=== PATIENT | female | born 1955 | race Caucasian/White ===

== ENCOUNTER 2021-06-19 21:02 | Emergency (ER) | payer OTHER, MEDICAID ==
[~2021-06-19] VITALS: Ht 152.4 cm; Wt 81.6 kg
[2021-06-19 21:55] VITALS: BP_SYST 138
[2021-06-19] MEDS ORDERED: METO50TA7 PO (22:01)
[2021-06-19] MEDS ORDERED: LIP80 PO (22:02)
[2021-06-19] MEDS ORDERED: ASPI-1457 PO (22:03)
[2021-06-19] MEDS ORDERED: AMLO5TAB4 PO (22:04)
[2021-06-19] MEDS ORDERED: VITAMIN 2 (22:12)
[2021-06-19] MEDS ORDERED: VITAMIN D2 PO (22:13)
[2021-06-20 00:52] LABS: BASOPHILS # (AUTO) 0.1 K/uL (0.0-0.2); BASOPHILS % (AUTO) 0.8 % (0.0-2.0); EOSINOPHILS # (AUTO) 0.2 K/uL (0.0-0.4); EOSINOPHILS % (AUTO) 2.2 % (0.0-4.0); HEMATOCRIT 36.9 % (36-48); HEMOGLOBIN 12.6 g/dL (12.0-16.0); LYMPHOCYTES # (AUTO) 3.8 K/uL (1.0-5.5); LYMPHOCYTES % (AUTO) 45.7 % (20.5-51.5); MEAN CORPUSCULAR HEMOGLOBIN 31 pg (27-31); MEAN CORPUSCULAR HGB CONC 34 % (32-36); MEAN CORPUSCULAR VOLUME 91 fL (79.0-98.0); MONOCYTES # (AUTO) 0.6 K/uL (0.0-1.0); MONOCYTES % (AUTO) 7.7 % (1.7-9.3); NEUTROPHILS # (AUTO) 3.7 K/uL (1.8-7.7); NEUTROPHILS % (AUTO) 43.6 % (40.0-70.0); PLATELET COUNT (AUTO) 273 K/uL (130-430); RED BLOOD CELL COUNT(AUTO) 4.07 MIL/uL (4.2-6.2); RED CELL DISTRIBUTION WIDTH 13.4 % (9.0-15.0); WHITE BLOOD COUNT (AUTO) 8.4 K/uL (4.8-10.8)
[2021-06-20 00:53] LABS: BILIRUBIN,URINE NEGATIVE (NEGATIVE); BLOOD, URINE NEGATIVE (NEGATIVE); CLARITY/URINE CLEAR (CLEAR); COLOR,URINE YELLOW (YELLOW); GLUCOSE,URINE NEGATIVE (NEGATIVE); KETONES,URINE NEGATIVE (NEGATIVE); LEUKOCYTE ESTERASE ,URINE 1+ (NEGATIVE); NITRITE, URINE POSITIVE (NEGATIVE); PROTEIN URINE NEGATIVE (NEGATIVE); UROBILINOGEN,URINE 0.2 (0.2-1.0)
[2021-06-20 01:05] LABS: CALCIUM 8.9 mg/dL (8.4-11.0); CREATININE 0.76 mg/dL (0.55-1.30); POTASSIUM 3.9 mmol/L (3.5-5.1)
[2021-06-20 01:10] LABS: INR 0.9 (0.8-1.2); PROTHROMBIN TIME 9.7 SECS (9.5-12.5)
[2021-06-20 01:11] LABS: ALBUMIN 3.7 g/dL (3.4-4.8); TOTAL BILIRUBIN 0.7 mg/dL (0.0-1.0)
[2021-06-20] MEDS ORDERED: cephALEXin 500 MG CAPSULE PO ONE (01:45)
[2021-06-20 01:58] LABS: BACTERIA,URINE MODERATE /HPF (None Seen); RBC,URINE 0-3 /HPF (0-3)
[2021-06-20] MEDS ORDERED: CEPH250C PO (01:59)
[2021-06-20 02:10] VITALS: BP_SYST 141
== END 2021-06-20 02:10 | disposition home or self-care (01) ==
LOC: SED 21:02
DX: N39.0 Urinary tract infection, site not specified (principal); E11.65 Type 2 diabetes mellitus with hyperglycemia; I10 Essential (primary) hypertension; K21.9 Gastro-esophageal reflux disease without esophagitis; Z79.899 Other long term (current) drug therapy
CPT/HCPCS: 36415; 71045; 80053; 81000; 82962; 84484; 85025; 85610-TC; 85730-TC; 87086; 93005; 99285

== ENCOUNTER 2021-08-21 21:08 | Emergency (ER) | payer OTHER, MEDICAID, SELFPAY ==
[~2021-08-21] VITALS: Ht 152.4 cm; Wt 84.4 kg
[~2021-08-21 21:08] MED LIST: AMLO5TAB4 PO; ASPI-1457 PO; CEPH250C PO; LIP80 PO; METO50TA7 PO; VITAMIN 2; VITAMIN D2 PO
[2021-08-21 21:25] VITALS: BP_SYST 196
[2021-08-21 22:00] VITALS: BP_SYST 196
--- NOTE | 2021-08-21 22:00 | NUR ---
Pt brought by family, A&Ox4, pt presents to ER with L ankle pain/swelling after twisting foot, skin pink and warm, cap refill <3, VSS.
--- NOTE | 2021-08-21 22:00 | NUR ---
Patient left without being seen.
== END 2021-08-21 22:00 | disposition left against medical advice (07) ==
LOC: SED 21:20
DX: S93.402A Sprain of unspecified ligament of left ankle, initial encounter (principal); I10 Essential (primary) hypertension; E11.9 Type 2 diabetes mellitus without complications; K21.9 Gastro-esophageal reflux disease without esophagitis; E78.00 Pure hypercholesterolemia, unspecified; X58.XXXA Exposure to other specified factors, initial encounter; Y93.9 Activity, unspecified; Y92.9 Unspecified place or not applicable; Y99.9 Unspecified external cause status
CPT/HCPCS: 99283

== ENCOUNTER 2021-12-12 00:28 | Emergency (ER) | payer OTHER, MEDICAID ==
[~2021-12-12] VITALS: Ht 154.9 cm; Wt 83.5 kg
[2021-12-12 00:48] VITALS: BP_SYST 184
[2021-12-12] MEDS ORDERED: ONDANSETRON HCL 4 MG/2 ML VIAL IVP ONE ×2 (01:15→04:00)
[2021-12-12] MEDS ORDERED: NACL 0.9% 1,000 ML IV ONE (01:15)
[2021-12-12] MEDS ORDERED: KETOROLAC TROMETHAMINE 30 MG VIAL IVP ONE (01:15)
--- NOTE | 2021-12-12 02:06 | NUR ---
Patient to ER bed 8 to gown for evaluation. Side rails up. Report given to CARLENE ROMERO
--- NOTE | 2021-12-12 02:20 | NUR ---
Pt brought self in from home due to c/o R lower back/flank pain x4 days. Pain worsened today and OTC medication is not effective. Pt reports nausea, no vomiting. Afebrile. Arrived to ED in no acute distress. Breathing adequately on RA.
--- NOTE | 2021-12-12 02:44 | NUR ---
# 22 gauge angiocath placed to R AC. Use of asceptic technique. Opsite placed over site. Blood return noted. Blood for lab drawn from site. Flushed with 10 cc of normal saline. No evidence of infiltration noted. Patient tolerated well.
[2021-12-12 03:10] LABS: BASOPHILS # (AUTO) 0.1 K/uL (0.0-0.2); BASOPHILS % (AUTO) 0.9 % (0.0-2.0); EOSINOPHILS # (AUTO) 0.1 K/uL (0.0-0.4); EOSINOPHILS % (AUTO) 1.4 % (0.0-4.0); HEMATOCRIT 34.5 % (36-48); HEMOGLOBIN 12.1 g/dL (12.0-16.0); LYMPHOCYTES # (AUTO) 3.4 K/uL (1.0-5.5); LYMPHOCYTES % (AUTO) 38.1 % (20.5-51.5); MEAN CORPUSCULAR HEMOGLOBIN 32 pg (27-31); MEAN CORPUSCULAR HGB CONC 35 % (32-36); MEAN CORPUSCULAR VOLUME 90 fL (79.0-98.0); MONOCYTES # (AUTO) 0.6 K/uL (0.0-1.0); MONOCYTES % (AUTO) 7.2 % (1.7-9.3); NEUTROPHILS # (AUTO) 4.7 K/uL (1.8-7.7); NEUTROPHILS % (AUTO) 52.4 % (40.0-70.0); PLATELET COUNT (AUTO) 297 K/uL (130-430); RED BLOOD CELL COUNT(AUTO) 3.83 MIL/uL (4.2-6.2); RED CELL DISTRIBUTION WIDTH 13.5 % (9.0-15.0)
[2021-12-12 03:28] LABS: CALCIUM 7.9 mg/dL (8.4-11.0); CREATININE 0.87 mg/dL (0.55-1.30); POTASSIUM 3.1 mmol/L (3.5-5.1)
[2021-12-12 03:34] LABS: ALBUMIN 3.6 g/dL (3.4-4.8); TOTAL BILIRUBIN 0.9 mg/dL (0.0-1.0)
[2021-12-12] MEDS ORDERED: POTASSIUM CHLORIDE 20 MEQ TAB.PRT.SR PO ONE (03:45)
[2021-12-12] MEDS ORDERED: CEPH-548 PO (03:49)
[2021-12-12] MEDS ORDERED: IBUP-1971 PO (03:49)
[2021-12-12] MEDS ORDERED: cephALEXin 500 MG CAPSULE PO ONE (04:00)
[2021-12-12] MEDS ORDERED: MORPHINE 2 MG/ML INJ. SYRINGE IVP ONE (04:00)
[2021-12-12 04:45] VITALS: BP_SYST 149
--- NOTE | 2021-12-12 04:46 | NUR ---
Patient given written and verbal discharge instructions and verbalizes understanding. ER MD Storm discussed with patient the results and treatment provided. Patient in stable condition. ID arm band removed. IV catheter removed intact and dressing applied, no active bleeding. Rx of Keflex and Ibuprofen sent to pharmacy of choice. Patient educated on pain management and to follow up with PMD. Pain Scale 0/10. Opportunity for questions provided and answered. Medication side effect fact sheet provided.
--- NOTE | 2021-12-14 19:57 | NUR ---
ADDEDUM:NACL START 4 STOP 033
== END 2021-12-12 04:30 | disposition home or self-care (01) ==
LOC: SED 00:28
DX: N10 Acute pyelonephritis (principal); E87.6 Hypokalemia; E11.9 Type 2 diabetes mellitus without complications; I10 Essential (primary) hypertension; J45.909 Unspecified asthma, uncomplicated
CPT/HCPCS: 36415; 74176; 76376; 80053; 81002; 85025; 96361; 96374; 96375; 96376; 99284; J1885; J2270; J2405; J7030